=== PATIENT | female | born 1955 | race Caucasian/White ===

== ENCOUNTER 2021-08-25 14:55 | Inpatient (IN) | payer MEDICARE, MEDICAID ==
[2021-08-25] VITALS (10 sets, daily range): BP systolic 134–180; BP diastolic 67–124
[~2021-08-25] VITALS: Ht 162.5 cm; Wt 132.2 kg
[~2021-08-25 14:55] MED LIST: ASPI-84; [UNRECOGNIZED DRUG - OTHER]; pristiq
[2021-08-25] MEDS ORDERED: NITROGLYCERIN 0.4 MG SL TABS BTL 25'S SL ONE (15:10)
--- NOTE | 2021-08-25 15:16 | ED Respiratory ---
General Chief Complaint: Respiratory Problems Stated Complaint: SOB Source: patient Exam Limitations: no limitations History of Present Illness Date Seen by Provider: Aug 25, 2021 Time Seen by Provider: 15:13 Initial Comments To ER with shortness of breath for 4 days. She states that her right lower extremity swells quite a lot intermittently, sometimes it will swell twice as big as it is now. She denies any pain in it and is not sure why this happens. She denies fevers or chills but she has had a headache for the past 3 to 4 days. She started out at [facility] walk-in clinic with a negative Covid negative flu negative strep test today and was referred to the emergency room. She denies chest pain. She is found to be 88% on room air upon arrival to the emergency room. She is vaccinated against Covid. Timing/Duration: constant Severity: moderate Prior Episodes/Possible Cause: no prior episodes Associated Symptoms: cough, shortness of breath Allergies and Home Medications Allergies Coded Allergies: Latex, Natural Rubber (Verified Allergy, Unknown, 08/25/21) Patient Home Medication List Home Medication List Reviewed: Yes , (Reported) Entered as Reported by: LOLIS FERRIS on 11/06/09 0659 Aspirin (Anju) 81 Mg Tablet., (Reported) Entered as Reported by: LOLIS FERRIS on 11/06/09657 [visoprlol] , (Reported) Entered as Reported by: LOLIS FERRIS on 11/06/0958 Review of Systems Review of Systems Constitutional: see HPI; No chills, No fever EENTM: see HPI Respiratory: see HPI, cough, short of breath Cardiovascular: no symptoms reported Genitourinary: no symptoms reported Musculoskeletal: no symptoms reported Skin: no symptoms reported Psychiatric/Neurological: See HPI, Headache Hematologic/Lymphatic: No Symptoms Reported Past Gjyeirt-Nofyvw-Bnbtys Hx Past Medical History Reproductive Disorders: No Physical Exam Vital Signs - First Documented 08/25/21 15:05 Pulse 57 Resp 12 B/P (MAP) 173/124 (140) Pulse Ox 94 O2 Delivery Room Air Capillary Refill : Height: '" Weight: lbs. oz. kg; BMI Method: General Appearance: WD/WN, mild distress, cachetic, other (.Appears dyspneic after ambulating to room 10. Oxygen saturation 88% on room air. Right lower extremity is about twice the size of the left but there is no ecchymosis or erythema and it is nontender. Lungs are surprisingly clear.) Eyes: Bilateral Eye Normal Inspection, Bilateral Eye PERRL, Bilateral Eye EOMI Neck: non-tender, full range of motion Respiratory: normal breath sounds, no respiratory distress, no accessory muscle use Cardiovascular: regular rate, rhythm, no murmur Gastrointestinal: normal bowel sounds, non tender, soft Neurologic/Psychiatric: alert, normal mood/affect, oriented x 3 Skin: normal color, warm/dry Progress/Results/Core Measures Suspected Sepsis SIRS Temperature: Pulse: Respiratory Rate: Laboratory Tests 08/25/21 15:20: White Blood Count 9.2 Blood Pressure / Mean: Laboratory Tests 08/25/21 15:20: Creatinine 0.79, Platelet Count 222, Total Bilirubin 0.7 Results/Orders Lab Results Laboratory Tests Test 08/25/21 15:20 08/25/21 18:14 08/25/21 18:15 Range/Units White Blood Count 9.2 4.3-11.0 10^3/uL Red Blood Count 4.42 3.80-5.11 10^6/uL Hemoglobin 12.5 11.5-16.0 g/dL Hematocrit 39 35-52 % Mean Corpuscular Volume 88 80-99 fL Mean Corpuscular Hemoglobin 28 25-34 pg Mean Corpuscular Hemoglobin Concent 32 32-36 g/dL Red Cell Distribution Width 12.9 10.0-14.5 % Platelet Count 222 130-400 10^3/uL Mean Platelet Volume 9.4 9.0-12.2 fL Immature Granulocyte % (Auto) 0 % Neutrophils (%) (Auto) 70 42-75 % Lymphocytes (%) (Auto) 20 12-44 % Monocytes (%) (Auto) 6 0-12 % Eosinophils (%) (Auto) 4 0-10 % Basophils (%) (Auto) 0 0-10 % Neutrophils # (Auto) 6.4 1.8-7.8 10^3/uL Lymphocytes # (Auto) 1.9 1.0-4.0 10^3/uL Monocytes # (Auto) 0.5 0.0-1.0 10^3/uL Eosinophils # (Auto) 0.4 H 0.0-0.3 10^3/uL Basophils # (Auto) 0.0 0.0-0.1 10^3/uL Immature Granulocyte # (Auto) 0.0 0.0-0.1 10^3/uL D-Dimer 1.74 H 0.00-0.49 UG/ML Sodium Level 143 135-145 MMOL/L Potassium Level 3.9 3.6-5.0 MMOL/L Chloride Level 112 H 98-107 MMOL/L Carbon Dioxide Level 19 L 21-32 MMOL/L Anion Gap 12 5-14 MMOL/L Blood Urea Nitrogen 15 7-18 MG/DL Creatinine 0.79 0.60-1.30 MG/DL Estimat Glomerular Filtration Rate 82 BUN/Creatinine Ratio 19 Glucose Level 118 H 70-105 MG/DL Calcium Level 8.8 8.5-10.1 MG/DL Corrected Calcium 8.9 8.5-10.1 MG/DL Total Bilirubin 0.7 0.1-1.0 MG/DL Aspartate Amino Transf (AST/SGOT) 19 5-34 U/L Alanine Aminotransferase (ALT/SGPT) 19 0-55 U/L Alkaline Phosphatase 68 40-136 U/L Troponin I < 0.028 <0.028 NG/ML B-Type Natriuretic Peptide 368.3 H <100.0 PG/ML Total Protein 7.4 6.4-8.2 GM/DL Albumin 3.9 3.2-4.5 GM/DL My Orders Orders - RYAN DEL TORO TOOL TENDER Cbc With Automated Diff (08/25/21 15:10) Comprehensive Metabolic Panel (08/25/21 15:10) Ekg Tracing (08/25/21 15:10) Ua Culture If Indicated (08/25/21 15:10) Ed Iv/Invasive Line Start (08/25/21 15:10) Bnp [place] (08/25/21 15:10) Fibrin Degradation Products (08/25/21 15:10) Chest 1 View, Ap/Pa Only (08/25/21 15:10) Nitroglycerin 0.4 Mg Btl 25's (Nitrostat (08/25/21 15:10) Albuterol/Ipra Inhalation Soln (Duoneb I (08/25/21 15:30) Nitroglycerin 0.4 Mg Btl 25's (Nitrostat (08/25/21 15:30) Svn Small Volume Nebulizer (08/25/21 15:17) Ekg Tracing (08/25/21 15:17) Troponin I [place] (08/25/21 15:17) Aspirin Chewable Tablet (Baby Aspirin Ch (08/25/21 15:30) Aspirin Chewable Tablet (Baby Aspirin Ch (08/25/21 15:32) Ct Angio Chest W (08/25/21 15:52) Iohexol Injection (Omnipaque 350 Mg/Ml 1 (08/25/21 16:00) Received Contrast (Hold Metformin- Contr (08/25/21 16:00) Ns (Ivpb) (Sodium Chloride 0.9% Ivpb Bag (08/25/21 16:00) Hydralazine Injection (Apresoline Inject (08/25/21 16:30) Hydralazine Injection (Apresoline Inject (08/25/21 17:15) Procalcitonin (Pct) (08/25/21 18:04) Enoxaparin Injection (Lovenox Injectio (08/25/21 18:15) Enoxaparin Injection (Lovenox Injectio (08/25/21 18:15) Furosemide Injection (Lasix Injection) (08/25/21 18:15) Covid 19 Inhouse Test (08/25/21 18:06) Influenza A And B By Pcr (08/25/21 18:06) Arterial Blood Gas (08/25/21 18:17) Medications Given in ED Current Medications Medications Dose Ordered Sig/Leyla Route Start Time Stop Time Status Last Admin Dose Admin Albuterol/ Ipratropium 3 ml ONCE ONCE INH 08/25/21 15:30 08/25/21 15:31 DC 08/25/21 16:12 3 ML Aspirin 324 mg ONCE ONCE PO 08/25/21 15:30 08/25/21 15:31 DC 08/25/21 15:35 324 MG Hydralazine HCl 10 mg ONCE ONCE IV 08/25/21 16:30 08/25/21 16:31 DC 08/25/21 16:34 10 MG Hydralazine HCl 10 mg ONCE ONCE IV 08/25/21 17:15 08/25/21 17:16 DC 08/25/21 17:53 10 MG Iohexol 100 ml ONCE ONCE IV 08/25/21 16:00 08/25/21 16:01 DC 08/25/21 17:26 100 ML Nitroglycerin 0.4 mg STK-MED ONCE SL 08/25/21 15:10 08/25/21 15:14 DC 08/25/21 15:18 0.4 MG Sodium Chloride 100 ml ONCE ONCE IV 08/25/21 16:00 08/25/21 16:01 DC 08/25/21 17:26 80 ML Vital Signs/I&O 08/25/21 08/25/21 15:05 16:13 Pulse 57 Resp 12 B/P (MAP) 173/124 (140) Pulse Ox 94 O2 Delivery Room Air Room Air Capillary Refill : Departure Communication (Admissions) NAME: REY NICKERSON [facility] REC#: [id number] PT STATUS: REG ER : 1955 PHYSICIAN: RYAN DEL TORO APRN ADMIT DATE: 08/25/21/ER Draft Date of Exam:08/25/21 CHEST 1 VIEW, AP/PA ONLY EXAMINATION: Portable chest. INDICATION: Shortness of breath. FINDINGS: There is prominence demonstrated of the pulmonary interstitial markings and central vascular markings that suggests interstitial edema. There is mild enlargement of the cardiac silhouette. There may be small pleural effusions. There is no pneumothorax. IMPRESSION: Enlarged cardiac silhouette with central pulmonary vascular prominence suggesting pulmonary edema. Dictated on workstation # [id number] Dict: 08/25/21 1543 Trans: 08/25/[address] [facility] [id number] Interpreted by: ZUHAIR LEIGH MD Electronically signed by: [id number] shows sinus rhythm at 54 with a nonspecific intraventricular conduction delay QRS 117 ms QTC [address] segment change no ectopy 1822-spoke with Dr. Lemus. She will put in orders. Will give Lovenox 1 mg/kg here, cefepime and Lasix. I was able to get the ABG which was now sent down to lab. We will admit to Dr. Lemus she will put in queued orders, I spoke with Dr. Gallego who will consult. Impression Primary Impression: Hypoxia Additional Impression: CHF (congestive heart failure) Disposition: ADMITTED INPATIENT Condition: Stable Admissions Decision to Admit Reason: Admit from ER (General) Decision to Admit/Date: Aug 25, 2021 Time/Decision to Admit Time: 15:52 Departure-Patient Inst. Referrals: [facility] (PCP) Primary Care Physician RAMÓN DEL CASTILLO (Family) Primary Care Physician RYAN DEL TORO APRN Aug 25, 2021 15:16
[2021-08-25 15:26] LABS: BASOPHILS % (AUTO) 0 % (0-10); EOSINOPHILS # (AUTO) 0.4 10^3/uL (0.0-0.3); EOSINOPHILS % (AUTO) 4 % (0-10); HEMATOCRIT 39 % (35-52); HEMOGLOBIN 12.5 g/dL (11.5-16.0); LYMPHOCYTES # (AUTO) 1.9 10^3/uL (1.0-4.0); LYMPHOCYTES % (AUTO) 20 % (12-44); MEAN CORPUSCULAR HEMOGLOBIN 28 pg (25-34); MEAN CORPUSCULAR HGB CONC 32 g/dL (32-36); MEAN CORPUSCULAR VOLUME 88 fL (80-99); MEAN PLATELET VOLUME 9.4 fL (9.0-12.2); MONOCYTES # (AUTO) 0.5 10^3/uL (0.0-1.0); MONOCYTES % (AUTO) 6 % (0-12); NEUTROPHILS # (AUTO) 6.4 10^3/uL (1.8-7.8); NEUTROPHILS % (AUTO) 70 % (42-75); PLATELET COUNT 222 10^3/uL (130-400); WHITE BLOOD COUNT 9.2 10^3/uL (4.3-11.0)
[2021-08-25] MEDS ORDERED: ASPIRIN 81 MG CHEW (CHILDREN'S ASA) PO ONE (15:30)
[2021-08-25] MEDS ORDERED: RT-ALBUTEROL/IPRATROPIUM 3 ML (DUONEB) VIAL INH ONE (15:30)
[2021-08-25] MEDS ORDERED: NITROGLYCERIN 0.4 MG SL TABS BTL 25'S SL PRN (15:30)
[2021-08-25] MEDS ORDERED: ASPIRIN 81 MG CHEW (CHILDREN'S ASA) ONE (15:32)
[2021-08-25 15:46] LABS: ALANINE AMINOTRANSFERASE 19 U/L (0-55); ALBUMIN 3.9 GM/DL (3.2-4.5); ALKALINE PHOSPHATASE 68 U/L (40-136); BILIRUBIN,TOTAL 0.7 MG/DL (0.1-1.0); BUN/CREATININE RATIO 19; CALCIUM 8.8 MG/DL (8.5-10.1); CARBON DIOXIDE 19 MMOL/L (21-32); CHLORIDE 112 MMOL/L (98-107); CREATININE SERUM 0.79 MG/DL (0.60-1.30); GFR ESTIMATED 82; GLUCOSE 118 MG/DL (70-105); POTASSIUM 3.9 MMOL/L (3.6-5.0); SODIUM 143 MMOL/L (135-145); TOTAL PROTEIN 7.4 GM/DL (6.4-8.2)
--- NOTE | 2021-08-25 15:50 | Diagnostic Imaging Report ---
EXAMINATION: Portable chest. INDICATION: Shortness of breath. FINDINGS: There is prominence demonstrated of the pulmonary interstitial markings and central vascular markings that suggests interstitial edema. There is mild enlargement of the cardiac silhouette. There may be small pleural effusions. There is no pneumothorax. IMPRESSION: Enlarged cardiac silhouette with central pulmonary vascular prominence suggesting pulmonary edema. Dictated by: Dictated on workstation # [id number]
[2021-08-25] MEDS ORDERED: HOLD METFORMIN - RECEIVED CONTRAST 20 ML VIAL IV SCH (16:00)
[2021-08-25] MEDS ORDERED: IOHEXOL 350 MG/ML 100 ML (OMNIPAQUE 350) VIAL IV ONE (16:00)
[2021-08-25] MEDS ORDERED: NS 100 ML (IVPB) BAG IV ONE (16:00)
[2021-08-25] MEDS ORDERED: hydrALAZINE (APESOLINE) 20 MG/ML VIAL IV ONE ×2 (16:30→17:15)
--- NOTE | 2021-08-25 17:59 | Diagnostic Imaging Report ---
PROCEDURE: CT angiography of the chest with contrast. TECHNIQUE: Multiple contiguous axial images were obtained through the chest after uneventful bolus administration of intravenous contrast. 3D reconstructed CTA MIP acquisitions were also performed. Auto Exposure Controls were utilized during the CT exam to meet ALARA standards for radiation dose reduction. INDICATION: 66-year-old female, shortness of air x 4 days. Elevated D-dimer, leg swelling. CORRELATION: Chest radiograph 08/25/2021. FINDINGS: Heart size is mildly enlarged. No pericardial effusion. No disproportionate right heart strain. The thoracic aorta is of normal contour. No aneurysm or dissection. Mildly prominent but currently non pathologically large mediastinal and hilar lymph nodes are present. There is no definitive pulmonary artery filling defect to suggest pulmonary embolism. Small to moderate pleural effusions layer dependently. Scattered particularly groundglass opacities are noted, particularly the lower lobe distributions. No jelly lobar consolidation. Cholecystectomy. Likely hepatic steatosis. The visualized osseous structures demonstrate no acute findings. IMPRESSION: 1. No CTA evidence for pulmonary embolism. 2. Cardiac enlargement with presence of pleural effusion, groundglass pulmonary infiltrate-like opacities favors probable edema. Vasculature however does not appear to be overly distended. 3. Groundglass opacities could also be reflective of multifocal pneumonitis. This would include an atypical viral-type pneumonitis including potential for Covid pneumonia. Dictated by: Dictated on workstation # [id number]
[2021-08-25] MEDS ORDERED: ENOXAPARIN 80 MG/0.8 ML (LOVENOX) SYR SC ONE (18:15)
[2021-08-25] MEDS ORDERED: FUROSEMIDE 40 MG/4 ML INJ (LASIX) IVP ONE (18:15)
[2021-08-25] MEDS ORDERED: ENOXAPARIN 60 MG/0.6 ML (LOVENOX) SYR SC ONE (18:15)
[2021-08-25 18:24] LABS: ABG BASE EXCESS -1.9 MMOL/L (-2.5-2.5); ABG OXYGEN SATURATION 96 % (94-100); ABG PCO2 37 MMHG (35-45); ABG PO2 83 MMHG (79-93); ABG TCO2 23.4 MMOL/L (21.0-31.0)
[2021-08-25 18:28] LABS: ALLENS TEST YES-POS; INSPIRED O2 ROOM AIR; VENTILATOR NO
[2021-08-25] MEDS ORDERED: cloNIDine 0.1 MG (CATAPRES) TAB PO ONE (19:30)
[2021-08-25 19:33] LABS: BILIRUBIN,URINE NEGATIVE (NEGATIVE); CLARITY,URINE CLEAR; COLOR,URINE YELLOW; GLUCOSE, URINE (UA) NEGATIVE (NEGATIVE); KETONES,URINE NEGATIVE (NEGATIVE); LEUKOCYTE ESTERASE ,URINE 1+ (NEGATIVE); NITRITE,URINE NEGATIVE (NEGATIVE); PH,URINE 5.5 (5-9); PROTEIN,URINE NEGATIVE (NEGATIVE)
[2021-08-25 19:41] LABS: BACTERIA,URINE FEW /HPF; SQUAMOUS EPITHELIAL CELL,UR 0-2 /HPF; WBC,URINE 0-2 /HPF
[2021-08-25] MEDS ORDERED: CALCIUM CARBONATE 500 MG (TUMS) TAB.CHEW PO PRN (20:15)
[2021-08-25] MEDS ORDERED: polyethylene glycoL POWDER 17 GM (MIRALAX) PACK PO PRN (20:15)
[2021-08-25] MEDS ORDERED: LACTULOSE SYRUP 10GM/15ML (ENULOSE) 30ML UDC PO PRN (20:15)
[2021-08-25] MEDS ORDERED: MELATONIN 3 MG TABLET PO PRN (20:15)
[2021-08-25] MEDS ORDERED: diphenhydrAMINE 50 MG/ML INJ (BENADRYL) IVP PRN (20:15)
[2021-08-25] MEDS ORDERED: MILK OF MAGNESIA 400 MG/5 ML 30 ML UDC PO PRN (20:15)
[2021-08-25] MEDS ORDERED: ACETAMINOPHEN 325 MG TABLET PO PRN (20:15)
[2021-08-25] MEDS ORDERED: ALPRAZolam 0.25 MG (XANAX) TAB PO PRN (20:15)
[2021-08-25] MEDS ORDERED: guaiFENesin/CODEINE (ROBITUSSIN AC) 10ML UDC PO PRN (20:15)
[2021-08-25] MEDS ORDERED: morphine INJ 4 MG/ML 1 ML (VIAL/SYRINGE) IV PRN (20:15)
[2021-08-25] MEDS ORDERED: ANTACID SUSP 30 ML UDC (MYLANTA) PO PRN (20:15)
[2021-08-25] MEDS ORDERED: BISACODYL 10 MG SUPP (DULCOLAX) PR PRN (20:15)
[2021-08-25] MEDS ORDERED: diphenhydrAMINE 25 MG TAB (BENADRYL) PO PRN (20:15)
[2021-08-25] MEDS ORDERED: ONDANSETRON 4 MG/2 ML (SDV) Z0FRAN IV PRN (20:15)
[2021-08-25] MEDS ORDERED: ONDANSETRON 4 MG (ZOFRAN) ORAL DISSOLVE TAB PO PRN (20:15)
[2021-08-25] MEDS: DOCUSATE SODIUM 100 MG (COLACE) CAP PO SCH (20:21)
[2021-08-25] MEDS: SENNOSIDES 8.6 MG (SENOKOT) TAB PO SCH (20:21)
[2021-08-25] MEDS ORDERED: CEFEPIME INJECTION 2,000 MG in NS (IVPB) 50 ML IV SCH (21:00)
[2021-08-25] MEDS ORDERED: ENOXAPARIN 80 MG/0.8 ML (LOVENOX) SYR SC SCH (21:00)
[2021-08-25] MEDS ORDERED: RT-ALBUTEROL SULF 2.5 MG/3 ML PRE-MIX VIAL INH PRN (21:15)
[2021-08-25] MEDS: CEFEPIME 1,000 MG/NS 50 ML IVPB IV SCH ×2 (22:30)
[2021-08-26] VITALS (10 sets, daily range): BP systolic 148–215; BP diastolic 77–101
[2021-08-26] MEDS: CEFEPIME 1,000 MG/NS 50 ML IVPB IV SCH ×6 (04:09→15:50)
[2021-08-26] MEDS ORDERED: HYDR25TA4 PO (04:47)
[2021-08-26] MEDS ORDERED: LOSA1TAB26 PO (04:47)
[2021-08-26] MEDS ORDERED: METO50TA7 PO (04:47)
[2021-08-26 05:11] LABS: BASOPHILS % (AUTO) 0 % (0-10); EOSINOPHILS # (AUTO) 0.1 10^3/uL (0.0-0.3); EOSINOPHILS % (AUTO) 1 % (0-10); HEMATOCRIT 37 % (35-52); HEMOGLOBIN 11.8 g/dL (11.5-16.0); LYMPHOCYTES # (AUTO) 1.7 10^3/uL (1.0-4.0); LYMPHOCYTES % (AUTO) 19 % (12-44); MEAN CORPUSCULAR HEMOGLOBIN 28 pg (25-34); MEAN CORPUSCULAR HGB CONC 32 g/dL (32-36); MEAN CORPUSCULAR VOLUME 87 fL (80-99); MONOCYTES # (AUTO) 0.5 10^3/uL (0.0-1.0); MONOCYTES % (AUTO) 6 % (0-12); NEUTROPHILS # (AUTO) 6.4 10^3/uL (1.8-7.8); NEUTROPHILS % (AUTO) 73 % (42-75); PLATELET COUNT 227 10^3/uL (130-400); WHITE BLOOD COUNT 8.8 10^3/uL (4.3-11.0)
[2021-08-26 05:41] LABS: ALBUMIN 3.7 GM/DL (3.2-4.5); BILIRUBIN,TOTAL 0.6 MG/DL (0.1-1.0); CALCIUM 8.7 MG/DL (8.5-10.1); CREATININE SERUM 0.74 MG/DL (0.60-1.30); POTASSIUM 3.6 MMOL/L (3.6-5.0); TOTAL PROTEIN 7.4 GM/DL (6.4-8.2)
[2021-08-26] MEDS ORDERED: meTOproloL SUCCINATE 50 MG (TOPROL XL) TAB PO SCH (05:45)
[2021-08-26] MEDS: LOSARTAN 100 MG (COZAAR) TABLET PO SCH (06:25)
[2021-08-26] MEDS: cloNIDine 0.1 MG (CATAPRES) TAB PO SCH ×2 (08:43→20:29)
[2021-08-26] MEDS: ENOXAPARIN 100 MG/1 ML (LOVENOX) SYR SC SCH ×3 (08:43→20:29)
[2021-08-26] MEDS: DOCUSATE SODIUM 100 MG (COLACE) CAP PO SCH ×2 (08:44→21:08)
[2021-08-26] MEDS: SENNOSIDES 8.6 MG (SENOKOT) TAB PO SCH ×2 (08:44→21:08)
[2021-08-26] MEDS ORDERED: FUROSEMIDE 40 MG/4 ML INJ (LASIX) IVP SCH (09:00)
--- NOTE | 2021-08-26 09:25 | Diagnostic Imaging Report ---
PROCEDURE: US Venous Lower Ext Neptali. TECHNIQUE: Multiple real-time grayscale images were obtained over the lower extremities in various projections, bilaterally. Additional duplex Doppler and color Doppler images were also obtained. INDICATION: Atypical pneumonia. FINDINGS: There is no evidence of right or left lower extremity DVT. Both lower extremity deep venous systems demonstrate normal compressibility with normal response to augmentation and Valsalva. No fluid collection or mass is detected. IMPRESSION: No evidence of right or left lower extremity DVT. Dictated by: Dictated on workstation # [id number]
--- NOTE | 2021-08-26 10:06 | Consultation-Cardiology ---
HPI-Cardiology Cardiology Consultation Date of Consultation 08/26/21 Date of Admission Time Seen by Provider: 10:00 Indication: Shortness of breath HPI 66-year-old lady with history of peripheral edema, started to have increasing shortness of breath and tachycardia, came into the emergency room for evaluation. She reported that her right leg was swelling. She uses diuretic as needed for edema, started to have progressive dyspnea. Denied any fever or chills. No cough or phlegm. Reported that she was tested negative for Covid and for influenza. On my evaluation she was sitting up in a chair, feeling better, no active dyspnea. No significant edema. No chest pain. Home Medications & Allergies Allergies: Coded Allergies: Latex, Natural Rubber (Verified Allergy, Unknown, 08/25/21) Home Medication List Reviewed: Yes YZE-Wgxzik-Wlfroy Hx Patient Social History Smoking Status: Former Smoker Have you traveled recently?: No Alcohol Use?: No Past Medical History Discussed below Family Medical History Family Medical Hx Noncontributory Review of Systems-General Review of Systems Constitutional: see HPI; No chills, No fever EENTM: see HPI Respiratory: see HPI, cough, short of breath Cardiovascular: no symptoms reported Gastrointestinal: no symptoms reported, see HPI Genitourinary: no symptoms reported Musculoskeletal: no symptoms reported Skin: no symptoms reported Psychiatric/Neurological: See HPI, Headache Reviewed Test Results Reviewed Test Results Lab Laboratory Tests Test 08/25/21 15:20 08/25/21 18:14 08/25/21 18:15 08/25/21 19:28 Range/Units White Blood Count 9.2 4.3-11.0 10^3/uL Red Blood Count 4.42 3.80-5.11 10^6/uL Hemoglobin 12.5 11.5-16.0 g/dL Hematocrit 39 35-52 % Mean Corpuscular Volume 88 80-99 fL Mean Corpuscular Hemoglobin 28 25-34 pg Mean Corpuscular Hemoglobin Concent 32 32-36 g/dL Red Cell Distribution Width 12.9 10.0-14.5 % Platelet Count 222 130-400 10^3/uL Mean Platelet Volume 9.4 9.0-12.2 fL Immature Granulocyte % (Auto) 0 % Neutrophils (%) (Auto) 70 42-75 % Lymphocytes (%) (Auto) 20 12-44 % Monocytes (%) (Auto) 6 0-12 % Eosinophils (%) (Auto) 4 0-10 % Basophils (%) (Auto) 0 0-10 % Neutrophils # (Auto) 6.4 1.8-7.8 10^3/uL Lymphocytes # (Auto) 1.9 1.0-4.0 10^3/uL Monocytes # (Auto) 0.5 0.0-1.0 10^3/uL Eosinophils # (Auto) 0.4 H 0.0-0.3 10^3/uL Basophils # (Auto) 0.0 0.0-0.1 10^3/uL Immature Granulocyte # (Auto) 0.0 0.0-0.1 10^3/uL D-Dimer 1.74 H 0.00-0.49 UG/ML Sodium Level 143 135-145 MMOL/L Potassium Level 3.9 3.6-5.0 MMOL/L Chloride Level 112 H 98-107 MMOL/L Carbon Dioxide Level 19 L 21-32 MMOL/L Anion Gap 12 5-14 MMOL/L Blood Urea Nitrogen 15 7-18 MG/DL Creatinine 0.79 0.60-1.30 MG/DL Estimat Glomerular Filtration Rate 82 BUN/Creatinine Ratio 19 Glucose Level 118 H 70-105 MG/DL Calcium Level 8.8 8.5-10.1 MG/DL Corrected Calcium 8.9 8.5-10.1 MG/DL Total Bilirubin 0.7 0.1-1.0 MG/DL Aspartate Amino Transf (AST/SGOT) 19 5-34 U/L Alanine Aminotransferase (ALT/SGPT) 19 0-55 U/L Alkaline Phosphatase 68 40-136 U/L Troponin I < 0.028 <0.028 NG/ML B-Type Natriuretic Peptide 368.3 H <100.0 PG/ML Total Protein 7.4 6.4-8.2 GM/DL Albumin 3.9 3.2-4.5 GM/DL Procalcitonin 0.14 H <0.10 NG/ML Blood Gas Puncture Site RT RAD Blood Gas Patient Temperature 37.0 Arterial Blood pH 7.40 7.37-7.43 Arterial Blood Partial Pressure CO2 37 35-45 MMHG Arterial Blood Partial Pressure O2 83 79-93 MMHG Arterial Blood HCO3 22 L 23-27 MMOL/L Arterial Blood Total CO2 23.4 21.0-31.0 MMOL/L Arterial Blood Oxygen Saturation 96 94-100 % Arterial Blood Base Excess -1.9 -2.5-2.5 MMOL/L Levi Test YES-POS Blood Gas Ventilator Setting NO Blood Gas Inspired Oxygen ROOM AIR Influenza Type A Antigen NEGATIVE NEGATIVE Influenza Type B Antigen NEGATIVE NEGATIVE SARS-CoV-2 RNA (RT-PCR) Not Detected Negative Urine Color YELLOW Urine Clarity CLEAR Urine pH 5.5 5-9 Urine Specific [place] 1.010 L 1.016-1.022 Urine Protein NEGATIVE NEGATIVE Urine Glucose (UA) NEGATIVE NEGATIVE Urine Ketones NEGATIVE NEGATIVE Urine Nitrite NEGATIVE NEGATIVE Urine Bilirubin NEGATIVE NEGATIVE Urine Urobilinogen 0.2 < = 1.0 MG/DL Urine Leukocyte Esterase 1+ H NEGATIVE Urine RBC (Auto) NEGATIVE NEGATIVE Urine RBC NONE /HPF Urine WBC 0-2 /HPF Urine Squamous Epithelial Cells 0-2 /HPF Urine Renal Epithelial Cells NONE /HPF Urine Crystals NONE /LPF Urine Bacteria FEW H /HPF Urine Casts NONE /LPF Urine Mucus NEGATIVE /LPF Urine Culture Indicated NO Test 08/26/21 04:52 Range/Units White Blood Count 8.8 4.3-11.0 10^3/uL Red Blood Count 4.23 3.80-5.11 10^6/uL Hemoglobin 11.8 11.5-16.0 g/dL Hematocrit 37 35-52 % Mean Corpuscular Volume 87 80-99 fL Mean Corpuscular Hemoglobin 28 25-34 pg Mean Corpuscular Hemoglobin Concent 32 32-36 g/dL Red Cell Distribution Width 13.1 10.0-14.5 % Platelet Count 227 130-400 10^3/uL Mean Platelet Volume 10.0 9.0-12.2 fL Immature Granulocyte % (Auto) 0 % Neutrophils (%) (Auto) 73 42-75 % Lymphocytes (%) (Auto) 19 12-44 % Monocytes (%) (Auto) 6 0-12 % Eosinophils (%) (Auto) 1 0-10 % Basophils (%) (Auto) 0 0-10 % Neutrophils # (Auto) 6.4 1.8-7.8 10^3/uL Lymphocytes # (Auto) 1.7 1.0-4.0 10^3/uL Monocytes # (Auto) 0.5 0.0-1.0 10^3/uL Eosinophils # (Auto) 0.1 0.0-0.3 10^3/uL Basophils # (Auto) 0.0 0.0-0.1 10^3/uL Immature Granulocyte # (Auto) 0.0 0.0-0.1 10^3/uL Sodium Level 143 135-145 MMOL/L Potassium Level 3.6 3.6-5.0 MMOL/L Chloride Level 109 H 98-107 MMOL/L Carbon Dioxide Level 20 L 21-32 MMOL/L Anion Gap 14 5-14 MMOL/L Blood Urea Nitrogen 13 7-18 MG/DL Creatinine 0.74 0.60-1.30 MG/DL Estimat Glomerular Filtration Rate 89 BUN/Creatinine Ratio 18 Glucose Level 103 70-105 MG/DL Calcium Level 8.7 8.5-10.1 MG/DL Corrected Calcium 8.9 8.5-10.1 MG/DL Total Bilirubin 0.6 0.1-1.0 MG/DL Aspartate Amino Transf (AST/SGOT) 16 5-34 U/L Alanine Aminotransferase (ALT/SGPT) 16 0-55 U/L Alkaline Phosphatase 63 40-136 U/L Total Protein 7.4 6.4-8.2 GM/DL Albumin 3.7 3.2-4.5 GM/DL Physical Exam Physical Exam Vital Signs Vital Signs - First Documented 08/25/21 08/25/21 08/25/21 15:05 19:45 20:56 Temp 36.8 Pulse 57 Resp 12 B/P (MAP) 173/124 (140) Pulse Ox 94 O2 Delivery Room Air FiO2 21 Capillary Refill : Less Than 3 Seconds Height, Weight, BMI Height: '" Weight: lbs. oz. kg; 50.10 BMI Method: General Appearance: No Apparent Distress, WD/WN Eyes: Bilateral Eye Normal Inspection, Bilateral Eye PERRL, Bilateral Eye EOMI HEENT: PERRL/EOMI, TMs Normal, Normal ENT Inspection, Pharynx Normal, Moist Mucous Membranes Neck: Full Range of Motion, Normal Inspection, Non Tender, Supple, Carotid Bruit Respiratory: Chest Non Tender, Normal Breath Sounds, No Accessory Muscle Use, No Respiratory Distress Cardiovascular: Regular Rate, Rhythm, No Edema, No Gallop, No JVD, No Murmur, Normal Peripheral Pulses Gastrointestinal: Normal Bowel Sounds, No Organomegaly, No Pulsatile Mass, Non Tender, Soft Back: Normal Inspection, No CVA Tenderness, No Vertebral Tenderness Extremity: Normal Capillary Refill, Normal Inspection, Normal Range of Motion, Non Tender, No Calf Tenderness, No Pedal Edema Neurologic/Psychiatric: Alert, Oriented x3, No Motor/Sensory Deficits, Normal Mood/Affect Skin: Normal Color, Warm/Dry Lymphatic: No Adenopathy A/P-Cardiology Admission Diagnosis Shortness of breath Hypertension Obesity Peripheral edema Assessment/Plan Shortness of breath, mild elevation in BNP, responded to diuretics, feeling better, awaiting for repeat COVID-19 testing results, planning to evaluate 2D echo Hypertension, poorly controlled, given a dose of clonidine earlier. Continue to monitor blood pressure, restart home medication Questionable history of coronary artery disease, patient reporting that she had a heart attack at age 37, did not require any stenting, was not on any treatment and no further episodes were reported. No cardiac work-up was done Obesity, BMI 50, discussed weight loss History of substance abuse, has been abstinent for over 20 years Pedal edema, reporting recurrent right lower extremity edema, better at this time Anxiety, managed by primary care physician NAVJOT CABRERA MD Aug 26, 2021 10:06
[2021-08-26] MEDS ORDERED: GLUC1TAB20 PO (11:21)
[2021-08-26] MEDS ORDERED: MTP100TCR PO (11:21)
[2021-08-26] MEDS ORDERED: LOSA100T57 PO (11:21)
--- NOTE | 2021-08-26 16:50 | History & Physical ---
HPI History of Present Illness: 66 yo female came to ER due to shortness of breath for 4 days that was worsening, she called the ambulance. Has had mild cough, no other complaints. Tested negative for COVID at clinic. Source: patient Exam Limitations: no limitations Date seen by provider: Aug 26, 2021 Time Seen by Provider: 10:30 Attending Physician Amanda Gong MD PCP [place] [place] Consult Date of Admission Aug 25, 2021 at 18:38 Home Medications Home Medications Reviewed patient Home Medication Reconciliation performed by pharmacy medication reconciliations operating theatre technician and/or nursing. Patients Allergies have been reviewed. 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: [employer] X1 Past Medical History PMHx: Distant history of substance abuse HTN HLD Depression SurgHx: Hysterectomy cholecystectomy Family Medical History Significant Family History: No Pertinent Family Hx Review of Systems (CHC) Constitutional: No fever Respiratory: cough, short of breath Cardiovascular: No chest pain, No edema (has right leg larger than left chronically) Gastrointestinal: No abdominal pain, No diarrhea, No nausea, No vomiting Genitourinary: No dysuria, No hematuria Musculoskeletal: No joint pain, No muscle pain Reviewed Test Results Reviewed Test Results Lab Laboratory Tests Test 08/25/21 15:20 08/25/21 18:14 08/25/21 18:15 08/25/21 19:28 Range/Units White Blood Count 9.2 4.3-11.0 10^3/uL Red Blood Count 4.42 3.80-5.11 10^6/uL Hemoglobin 12.5 11.5-16.0 g/dL Hematocrit 39 35-52 % Mean Corpuscular Volume 88 80-99 fL Mean Corpuscular Hemoglobin 28 25-34 pg Mean Corpuscular Hemoglobin Concent 32 32-36 g/dL Red Cell Distribution Width 12.9 10.0-14.5 % Platelet Count 222 130-400 10^3/uL Mean Platelet Volume 9.4 9.0-12.2 fL Immature Granulocyte % (Auto) 0 % Neutrophils (%) (Auto) 70 42-75 % Lymphocytes (%) (Auto) 20 12-44 % Monocytes (%) (Auto) 6 0-12 % Eosinophils (%) (Auto) 4 0-10 % Basophils (%) (Auto) 0 0-10 % Neutrophils # (Auto) 6.4 1.8-7.8 10^3/uL Lymphocytes # (Auto) 1.9 1.0-4.0 10^3/uL Monocytes # (Auto) 0.5 0.0-1.0 10^3/uL Eosinophils # (Auto) 0.4 H 0.0-0.3 10^3/uL Basophils # (Auto) 0.0 0.0-0.1 10^3/uL Immature Granulocyte # (Auto) 0.0 0.0-0.1 10^3/uL D-Dimer 1.74 H 0.00-0.49 UG/ML Sodium Level 143 135-145 MMOL/L Potassium Level 3.9 3.6-5.0 MMOL/L Chloride Level 112 H 98-107 MMOL/L Carbon Dioxide Level 19 L 21-32 MMOL/L Anion Gap 12 5-14 MMOL/L Blood Urea Nitrogen 15 7-18 MG/DL Creatinine 0.79 0.60-1.30 MG/DL Estimat Glomerular Filtration Rate 82 BUN/Creatinine Ratio 19 Glucose Level 118 H 70-105 MG/DL Calcium Level 8.8 8.5-10.1 MG/DL Corrected Calcium 8.9 8.5-10.1 MG/DL Total Bilirubin 0.7 0.1-1.0 MG/DL Aspartate Amino Transf (AST/SGOT) 19 5-34 U/L Alanine Aminotransferase (ALT/SGPT) 19 0-55 U/L Alkaline Phosphatase 68 40-136 U/L Troponin I < 0.028 <0.028 NG/ML B-Type Natriuretic Peptide 368.3 H <100.0 PG/ML Total Protein 7.4 6.4-8.2 GM/DL Albumin 3.9 3.2-4.5 GM/DL Procalcitonin 0.14 H <0.10 NG/ML Blood Gas Puncture Site RT RAD Blood Gas Patient Temperature 37.0 Arterial Blood pH 7.40 7.37-7.43 Arterial Blood Partial Pressure CO2 37 35-45 MMHG Arterial Blood Partial Pressure O2 83 79-93 MMHG Arterial Blood HCO3 22 L 23-27 MMOL/L Arterial Blood Total CO2 23.4 21.0-31.0 MMOL/L Arterial Blood Oxygen Saturation 96 94-100 % Arterial Blood Base Excess -1.9 -2.5-2.5 MMOL/L Levi Test YES-POS Blood Gas Ventilator Setting NO Blood Gas Inspired Oxygen ROOM AIR Coronavirus (COVID-19)(PCR) Negative Negative Influenza Type A Antigen NEGATIVE NEGATIVE Influenza Type B Antigen NEGATIVE NEGATIVE SARS-CoV-2 RNA (RT-PCR) Not Detected Negative Urine Color YELLOW Urine Clarity CLEAR Urine pH 5.5 5-9 Urine Specific [place] 1.010 L 1.016-1.022 Urine Protein NEGATIVE NEGATIVE Urine Glucose (UA) NEGATIVE NEGATIVE Urine Ketones NEGATIVE NEGATIVE Urine Nitrite NEGATIVE NEGATIVE Urine Bilirubin NEGATIVE NEGATIVE Urine Urobilinogen 0.2 < = 1.0 MG/DL Urine Leukocyte Esterase 1+ H NEGATIVE Urine RBC (Auto) NEGATIVE NEGATIVE Urine RBC NONE /HPF Urine WBC 0-2 /HPF Urine Squamous Epithelial Cells 0-2 /HPF Urine Renal Epithelial Cells NONE /HPF Urine Crystals NONE /LPF Urine Bacteria FEW H /HPF Urine Casts NONE /LPF Urine Mucus NEGATIVE /LPF Urine Culture Indicated NO Test 08/26/21 04:52 Range/Units White Blood Count 8.8 4.3-11.0 10^3/uL Red Blood Count 4.23 3.80-5.11 10^6/uL Hemoglobin 11.8 11.5-16.0 g/dL Hematocrit 37 35-52 % Mean Corpuscular Volume 87 80-99 fL Mean Corpuscular Hemoglobin 28 25-34 pg Mean Corpuscular Hemoglobin Concent 32 32-36 g/dL Red Cell Distribution Width 13.1 10.0-14.5 % Platelet Count 227 130-400 10^3/uL Mean Platelet Volume 10.0 9.0-12.2 fL Immature Granulocyte % (Auto) 0 % Neutrophils (%) (Auto) 73 42-75 % Lymphocytes (%) (Auto) 19 12-44 % Monocytes (%) (Auto) 6 0-12 % Eosinophils (%) (Auto) 1 0-10 % Basophils (%) (Auto) 0 0-10 % Neutrophils # (Auto) 6.4 1.8-7.8 10^3/uL Lymphocytes # (Auto) 1.7 1.0-4.0 10^3/uL Monocytes # (Auto) 0.5 0.0-1.0 10^3/uL Eosinophils # (Auto) 0.1 0.0-0.3 10^3/uL Basophils # (Auto) 0.0 0.0-0.1 10^3/uL Immature Granulocyte # (Auto) 0.0 0.0-0.1 10^3/uL Sodium Level 143 135-145 MMOL/L Potassium Level 3.6 3.6-5.0 MMOL/L Chloride Level 109 H 98-107 MMOL/L Carbon Dioxide Level 20 L 21-32 MMOL/L Anion Gap 14 5-14 MMOL/L Blood Urea Nitrogen 13 7-18 MG/DL Creatinine 0.74 0.60-1.30 MG/DL Estimat Glomerular Filtration Rate 89 BUN/Creatinine Ratio 18 Glucose Level 103 70-105 MG/DL Calcium Level 8.7 8.5-10.1 MG/DL Corrected Calcium 8.9 8.5-10.1 MG/DL Total Bilirubin 0.6 0.1-1.0 MG/DL Aspartate Amino Transf (AST/SGOT) 16 5-34 U/L Alanine Aminotransferase (ALT/SGPT) 16 0-55 U/L Alkaline Phosphatase 63 40-136 U/L Total Protein 7.4 6.4-8.2 GM/DL Albumin 3.7 3.2-4.5 GM/DL Radiology 1. No CTA evidence for pulmonary embolism. 2. Cardiac enlargement with presence of pleural effusion, groundglass pulmonary infiltrate-like opacities favors probable edema. Vasculature however does not appear to be overly distended. 3. Groundglass opacities could also be reflective of multifocal pneumonitis. This would include an atypical viral-type pneumonitis including potential for Covid pneumonia. Physical Exam-(CHC) Physical Exam Vital Signs VS - Last 72 Hours, by Label 08/25/21 08/25/21 08/25/21 08/25/21 15:05 16:13 19:45 20:10 Temp 36.8 Pulse 57 75 Resp 12 16 B/P (MAP) 173/124 (140) 179/94 Pulse Ox 94 96 O2 Delivery Room Air Room Air Room Air Room Air 08/25/21 08/25/21 08/25/21 08/25/21 20:30 20:31 20:45 20:56 Temp 36.0 36.0 Pulse 61 60 82 57 Resp 22 21 B/P (MAP) 164/93 (116) 142/115 (127) Pulse Ox 96 96 94 O2 Delivery Room Air Room Air FiO2 21 08/25/21 08/25/21 08/25/21 08/25/21 21:00 21:00 21:15 21:30 Pulse 60 53 47 Resp 19 12 10 B/P (MAP) 134/67 (96) 153/75 (120) 158/85 (108) Pulse Ox 96 95 97 97 O2 Delivery Room Air Room Air Room Air Room Air 08/25/21 08/25/21 08/25/21 08/25/21 21:45 22:00 22:15 23:00 Pulse 48 52 52 54 Resp 22 12 B/P (MAP) 161/85 (119) 161/79 (109) 165/78 (119) 180/88 (117) Pulse Ox 97 98 98 98 O2 Delivery Room Air Room Air Room Air Room Air 08/26/21 08/26/21 08/26/21 08/26/21 00:00 00:00 01:00 04:10 Temp 36.0 Pulse 56 53 57 Resp 15 18 B/P (MAP) 161/82 (106) 191/81 (117) Pulse Ox 96 97 O2 Delivery Room Air Room Air 08/26/21 08/26/21 08/26/21 08/26/21 04:11 07:45 08:00 08:47 Temp 36.1 36.6 Pulse 49 53 Resp 29 B/P (MAP) 200/99 (132) Pulse Ox 96 O2 Delivery Room Air 08/26/21 08/26/21 08/26/21 08/26/21 08:53 08:55 08:56 09:30 Pulse 53 55 56 Resp 18 17 16 B/P (MAP) 215/94 (134) 207/98 (134) 206/101 (136) Pulse Ox 96 97 96 96 O2 Delivery Room Air Room Air Room Air Room Air 08/26/21 08/26/21 08/26/21 12:00 12:15 16:47 Temp 36.2 37.3 Pulse 67 87 58 Resp 18 18 B/P (MAP) 167/92 (117) 167/78 (107) Pulse Ox 94 95 O2 Delivery Room Air Room Air Capillary Refill : Less Than 3 Seconds General Appearance: WD/WN, no apparent distress Respiratory: lungs clear, normal breath sounds Cardiovascular: regular rate, rhythm, no murmur Gastrointestinal: normal bowel sounds, non tender, soft Extremities: pedal edema (non-pitting, right greater than left) Neurologic/Psychiatric: alert, normal mood/affect, oriented x 3 Skin: normal color, warm/dry Assessment/Plan Assessment/Plan Admission Status: Inpatient Order (span 2 midnights) Reason for Inpatient Admission: Suspected new onset CHF (1) Shortness of breath Status: Acute Assessment & Plan: Not requiring supplemental oxygen, suspect due to pulmonary edema, no clear infiltrate, and no leukocytosis, will d/c cefepime; COVID negative, d/c dexamethasone. (2) Elevated brain natriuretic peptide (BNP) level Status: Acute Assessment & Plan: Echo pending, cardiology consulted, appreciate recommendations. lasix 40 mg IV daily started. (3) Elevated d-dimer Status: Acute Assessment & Plan: CTA chest neg for PE, ultrasound bilateral lower extremities neg for DVT, will decrease enoxaparin to prophylaxis dosing. (4) Hypertension Status: Chronic Assessment & Plan: Severe, resume home medications and adjust as necessary. (5) DVT prophylaxis Status: Acute Assessment & Plan: Enoxaparin AMANDA GONG MD Aug 26, 2021 16:50
[2021-08-26] MEDS: FUROSEMIDE 40 MG/4 ML INJ (LASIX) IVP SCH (17:45)
[2021-08-27 03:26] VITALS: BP 184/82
[2021-08-27 06:19] LABS: BASOPHILS % (AUTO) 0 % (0-10); EOSINOPHILS % (AUTO) 0 % (0-10); HEMATOCRIT 35 % (35-52); HEMOGLOBIN 11.6 g/dL (11.5-16.0); LYMPHOCYTES # (AUTO) 2.4 10^3/uL (1.0-4.0); LYMPHOCYTES % (AUTO) 24 % (12-44); MEAN CORPUSCULAR HEMOGLOBIN 28 pg (25-34); MEAN CORPUSCULAR HGB CONC 33 g/dL (32-36); MEAN CORPUSCULAR VOLUME 86 fL (80-99); MEAN PLATELET VOLUME 10.4 fL (9.0-12.2); MONOCYTES # (AUTO) 0.5 10^3/uL (0.0-1.0); MONOCYTES % (AUTO) 5 % (0-12); NEUTROPHILS # (AUTO) 7.1 10^3/uL (1.8-7.8); NEUTROPHILS % (AUTO) 70 % (42-75); PLATELET COUNT 257 10^3/uL (130-400); WHITE BLOOD COUNT 10.1 10^3/uL (4.3-11.0)
[2021-08-27 06:21] VITALS: BP 159/77
[2021-08-27] MEDS: FUROSEMIDE 40 MG/4 ML INJ (LASIX) IVP SCH (06:22)
[2021-08-27 06:24] LABS: ALBUMIN 3.6 GM/DL (3.2-4.5); POTASSIUM 3.2 MMOL/L (3.6-5.0)
[2021-08-27 06:26] LABS: CALCIUM 8.6 MG/DL (8.5-10.1)
[2021-08-27 06:27] LABS: TOTAL PROTEIN 6.9 GM/DL (6.4-8.2)
[2021-08-27 06:29] LABS: BILIRUBIN,TOTAL 0.4 MG/DL (0.1-1.0)
[2021-08-27 06:30] LABS: CREATININE SERUM 0.88 MG/DL (0.60-1.30)
[2021-08-27 08:00] VITALS: BP 136/85
--- NOTE | 2021-08-27 08:10 | Cardiology Progress Note ---
Subjective Date Seen by Provider: Aug 27, 2021 Time Seen by Provider: 08:04 Subjective/Events-last exam Patient was seen at bedside, sitting comfortably, no new complaint. Review of Systems General: No Chills, No Night Sweats, No Fatigue, No Malaise, No Appetite, No Other HEENT: No Head Aches, No Visual Changes, No Eye Pain, No Ear Pain, No Dysphasia, No Sinus Congestion, No Post Nasal Drip, No Sore Throat, No Other Pulmonary: No Dyspnea, No Cough, No Pleuritic Chest Pain, No Other Cardiovascular: No: Chest Pain, Palpitations, Orthopnea, Paroxysmal Noc. Dyspnea, Edema, Lt Headedness, Other Objective-Cardiology Exam Last Set of Vital Signs Vital Signs 08/25/21 08/27/21 08/27/21 08/27/21 20:56 03:26 06:21 07:46 Temp 36.4 Pulse 64 Resp 18 B/P (MAP) 159/77 (104) Pulse Ox 95 O2 Delivery Room Air O2 Flow Rate 96.00 FiO2 21 I&O Intake and Output 08/27/21 00:00 Intake Total 1370 ml Output Total 2800 ml Balance -1430 ml Intake Oral 1270 ml IV Total 100 ml Output Urine Total 2800 ml # Voids 4 # Bowel Movements 1 General: Alert, Oriented X3, Cooperative HEENT: Atraumatic, PERRLA Neck: Supple, No JVD, No Thyromegaly Lungs: Clear to Auscultation, Normal Air Movement Heart: Regular Rate, Normal S1, Normal S2, No Murmurs Abdomen: Normal Bowel Sounds, Soft, No Tenderness, No Hepatosplenomegaly, No Masses Extremities: No Clubbing, No Cyanosis, No Edema, Normal Pulses, No Tenderness/S welling Skin: No Rashes, No Breakdown, No Significant Lesion Neuro: Normal Gait, Normal Speech, Strength at 5/5 X4 Ext, Normal Tone, Sensation Intact Psych/Mental Status: Mental Status NL, Mood NL Results Lab Laboratory Tests 08/27/21 05:50 A/P-Cardiology Admission Diagnosis Shortness of breath Hypertension Obesity Peripheral edema Assessment/Plan Shortness of breath, mild elevation in BNP, responded to diuretics, awaiting 2D echo evaluation. Hypertension, poorly controlled, maintained on Toprol-XL 100 mg daily, losartan 100 mg daily, hydrochlorothiazide, clonidine 0.1 mg twice daily was added yesterday, still having bouts of elevated blood pressure. Questionable history of coronary artery disease, patient reporting that she had a heart attack at age 37, did not require any stenting, was not on any treatment and no further episodes were reported. No cardiac work-up was done recently. I am planning to do a stress test as an outpatient Hypokalemia secondary to diuretics. Replace potassium Obesity, BMI 50, discussed weight loss History of substance abuse, has been abstinent for over 20 years Pedal edema, reporting recurrent right lower extremity edema, better at this time Anxiety, managed by primary care physician NAVJOT CABRERA MD Aug 27, 2021 08:10
[2021-08-27] MEDS ORDERED: KCL 20 MEQ TAB (K-DUR) PO SCH (08:15)
[2021-08-27] MEDS: cloNIDine 0.1 MG (CATAPRES) TAB PO SCH (08:40)
[2021-08-27] MEDS: LOSARTAN 100 MG (COZAAR) TABLET PO SCH (08:40)
[2021-08-27] MEDS: ENOXAPARIN 100 MG/1 ML (LOVENOX) SYR SC SCH (08:41)
[2021-08-27] MEDS: SENNOSIDES 8.6 MG (SENOKOT) TAB PO SCH (08:50)
[2021-08-27] MEDS: DOCUSATE SODIUM 100 MG (COLACE) CAP PO SCH (08:50)
[2021-08-27] MEDS ORDERED: meTOproloL SUCCINATE 50 MG (TOPROL XL) TAB PO SCH (09:00)
[2021-08-27] MEDS ORDERED: NS IV 500 ML 500 ML IV ONE (09:00)
[2021-08-27] MEDS: POTASSIUM CL 10MEQ/50ML IVPB 50 ML IV SCH ×2 (09:06→09:32)
[2021-08-27] MEDS ORDERED: KCL 20 MEQ TAB (K-DUR) PO NR (09:30)
[2021-08-27 12:00] VITALS: BP 114/59
[2021-08-27] MEDS ORDERED: HYDR12.56 PO (13:40)
[2021-08-27] MEDS ORDERED: CLN.1T PO (13:40)
[2021-08-27] MEDS ORDERED: FURO20TA4 PO (13:40)
[2021-08-27] MEDS ORDERED: POTA-169 PO (13:40)
--- NOTE | 2021-08-27 13:43 | Discharge Summary ---
Discharge Summary Hospital Course Problems/Diagnosis: (1) Shortness of breath Status: Acute Assessment & Plan: Not requiring supplemental oxygen, suspect due to pulmonary edema, no clear infiltrate, and no leukocytosis, will d/c cefepime; COVID negative, d/c dexamethasone. Cardiology recommended outpatient stress test. (2) Elevated brain natriuretic peptide (BNP) level Status: Acute Assessment & Plan: Echo normal, Cardiology recommended continuing low dose lasix outpatient. (3) Elevated d-dimer Status: Acute Assessment & Plan: CTA chest neg for PE, ultrasound bilateral lower extremities neg for DVT (4) Hypertension Status: Chronic Assessment & Plan: Severe, resumed home medications (losartan 100 mg, HCTZ 12.5 mg and metoprolol 100 mg) and added clonidine 0.1 mg BID. Hospital Course Date of Admission: Aug 25, 2021 at 18:38 Admission Diagnosis : Family Physician/Provider: Zen Calzada Date of Discharge: 08/27/21 Discharge Diagnosis: See problem list Hospital Course: See problem list Labs and Pending Lab Test: Laboratory Tests 08/27/21 05:50: White Blood Count 10.1, Red Blood Count 4.09, Hemoglobin 11.6, Hematocrit 35, Mean Corpuscular Volume 86, Mean Corpuscular Hemoglobin 28, Mean Corpuscular Hemoglobin Concent 33, Red Cell Distribution Width 12.9, Platelet Count 257, Mean Platelet Volume 10.4, Immature Granulocyte % (Auto) 1, Neutrophils (%) (Auto) 70, Lymphocytes (%) (Auto) 24, Monocytes (%) (Auto) 5, Eosinophils (%) (Auto) 0, Basophils (%) (Auto) 0, Neutrophils # (Auto) 7.1, Lymphocytes # (Auto) 2.4, Monocytes # (Auto) 0.5, Eosinophils # (Auto) 0.0, Basophils # (Auto) 0.0, Immature Granulocyte # (Auto) 0.1, Sodium Level 139, Potassium Level 3.2L, Chloride Level 102, Carbon Dioxide Level 23, Anion Gap 14, Blood Urea Nitrogen 20H, Creatinine 0.88, Estimat Glomerular Filtration Rate 72, BUN/Creatinine Ratio 23, Glucose Level 118H, Calcium Level 8.6, Corrected Calcium 8.9, Total Bilirubin 0.4, Aspartate Amino Transf (AST/SGOT) 20, Alanine Aminotransferase (ALT/SGPT) 21, Alkaline Phosphatase 57, Total Protein 6.9, Albumin 3.6 Home Meds Active Klor-Con M20 (Potassium Chloride) 20 Meq Tab.er.prt 10 Meq PO DAILY@0700 Furosemide 20 Mg Tablet 20 Mg PO DAILY Clonidine HCl 0.1 Mg Tablet 0.1 Mg PO BID Hydrochlorothiazide 12.5 Mg Tablet 12.5 Mg PO DAILY Reported Glucosamine Chondroitin Tab (Gluc Castro/Chondro Castro A/Vit C/Mn) 1 Each Tablet 2 Each PO DAILY Metoprolol Succinate 100 Mg Tab.er.24h 100 Mg PO DAILY Losartan Potassium 100 Mg Tablet 100 Mg PO DAILY Assessment/Pt DC Instructions Follow up with primary physician within a week of discharge, follow up with Cardiology as directed. Discharge Diet: Cardiac Diet Activity as Tolerated: Yes Discharge Physical Examination Allergies: Coded Allergies: Latex, Natural Rubber (Verified Allergy, Unknown, 08/25/21) General Appearance: No Apparent Distress, WD/WN Respiratory: Lungs Clear, Normal Breath Sounds Cardiovascular: Regular Rate, Rhythm, No Murmur Skin: Normal Color, Warm/Dry Neurologic/Psychiatric: Alert, Normal Mood/Affect AMANDA PIZANO MD Aug 27, 2021 13:43
[2021-08-27 15:10] VITALS: BP 114/59
[2021-08-27] MEDS ORDERED: ENOXAPARIN 40 MG/0.4 ML (LOVENOX) SYR SC SCH (21:00)
--- NOTE | 2021-08-29 10:29 | Physician Query Clarification ---
PQ-Further Specificity Admission/Discharge Admission Date: Aug 25, 2021 at 18:38 Discharge Date: Aug 27, 2021 at 15:12 Dr. Gong, The medical record reflects the following clinical scenario: History/Risk Factors: HTN, obesity Clinical Findings: BNP 368.3, EF 55-60%, CXR 08/25 IMPRESSION: Enlarged cardiac silhouette with central pulmonary vascular prominence suggesting pulmonary edema. Treatment: 40 mg IVP Lasix Question: Can you further specify pulmonary edema per the clinical indicators above? Please document a response in the Progress Notes or Discharge Summary. 1. pulmonary edema d/t CHF (if yes, please specify acuity and type of CHF) 2. acute pulmonary edema only (no CHF) 3. Other, with explanation of the clinical findings. 4. Clinically undetermined, no explanation for the clinical findings. PHYSICIAN RESPONSE Can you specify per above: 2 Please remember a lack of response to the above will prompt a phone page by CDI/Coding staff. In responding to this query, please exercise your independent professional judgment. The purpose of this communication is to more accurately reflect the complexity of your patients condition. The fact that a question is asked does not imply that any particular answer is desired or expected. Thank you for your timely response to this clarification. Requestors name: Landon THIS PHYSICIAN QUERY FORM IS A PERMANENT PART OF THE MEDICAL RECORD LANDON TONY Aug 29, 2021 10:29 AMANDA GONG MD Aug 29, 2021 20:37
== END 2021-08-27 15:12 | disposition home or self-care (01) | DRG 189 ==
LOC: EDUNIT# 14:55 → ER 14:58 → CSD 18:38 → 4TH 08-26 08:36
PROVIDERS: ADMIT Internal Medicine; ATTEND Family Medicine
DX: J81.0 Acute pulmonary edema (principal); Z68.43 Body mass index [BMI] 50.0-59.9, adult; R09.02 Hypoxemia; E66.9 Obesity, unspecified; I10 Essential (primary) hypertension; E87.6 Hypokalemia; E78.5 Hyperlipidemia, unspecified; F41.9 Anxiety disorder, unspecified; Z20.822 Contact with and (suspected) exposure to COVID-19; T50.2X5A Adverse effect of carbonic-anhydrase inhibitors, benzothiadiazides and other diuretics, initial encounter; Z79.82 Long term (current) use of aspirin; Z91.040 Latex allergy status
CPT/HCPCS: 36415; 71045; 71275; 80053; 81000; 82805; 83880; 84145; 84484; 85025; 85379; 87635; 87636; 87804; 93005; 93306; 93970; 94640; 94760

== ENCOUNTER → 2021-10-07 | Outpatient (CLI) | payer MEDICARE, MEDICAID ==
[~2021-10-07] MED LIST changes: +CLN.1T PO; +FURO20TA4 PO; +GLUC1TAB20 PO; +HYDR12.56 PO; +HYDR25TA4 PO; +LOSA100T57 PO; +LOSA1TAB26 PO; +METO50TA7 PO; +MTP100TCR PO; +POTA-169 PO; +REGADENOSON 0.4 MG/5 ML SYR (LEXISCAN) IV ONE
[2021-10-07] MEDS: CATHETER FLUSH 10 ML SYR IVP PRN ×2 (08:15→09:45)
[2021-10-07 09:35] VITALS: BP 147/84
--- NOTE | 2021-10-07 11:31 | Cardiology Stress Test Report ---
Stress Test Report Date of Procedure/Referring: Date of Procedure: Oct 07, 2021 PCP Navjot Gallego MD Admitting Physician Center/[facility] Indications: HTN Baseline Heart Rate: 51 Baseline Blood Pressure: Blood Pressure Systolic: 147 Blood Pressure Diastolic: 84 Baseline Vitals Vital Signs Date Time Temp Pulse Resp B/P (MAP) Pulse Ox O2 Delivery O2 Flow Rate FiO2 10/07/21 09:35 52 16 147/84 (105) 95 Room Air Baseline EKG: Baseline EKG: NSR Summary After explaining the procedure to the patient, she signed a consent and then brought to the stress nuclear laboratory. Patient received 0.4 mg Lexiscan for stress test, ECG, heart rate and blood pressure were monitored continuously. Resting and stress dose of radio tracer were injected, imaging was acquired and reviewed in short axis, horizontal long axis and vertical long axis views. TID: 0.95 SSS: 5 SDS: 5 EF: 69 1. Patient was unable to exercise, test was converted to Lexiscan Myoview and patient tolerated Lexiscan well. 2. Breast attenuation with reversible ischemia involving the mid to apical anterior wall 3. Normal left ventricular size, EF 69% NAVJOT GALLEGO MD Oct 07, 2021 11:31
== END ==
LOC: CARD 08:15
PROVIDERS: ATTEND Internal Medicine Cardiovascular Disease
DX: I10 Essential (primary) hypertension (principal); I25.10 Atherosclerotic heart disease of native coronary artery without angina pectoris
CPT/HCPCS: 78452; 93017; A9502

== ENCOUNTER 2022-03-19 07:59 | Day surgery (SDC) | payer MEDICARE, MEDICAID ==
[2022-03-19] VITALS (9 sets, daily range): BP systolic 113–144; BP diastolic 53–88
[~2022-03-19] VITALS: Ht 162.6 cm; Wt 132.0 kg
[~2022-03-19 07:59] MED LIST changes: -GLUC1TAB20 PO; +GLUC1TAB21 PO; -REGADENOSON 0.4 MG/5 ML SYR (LEXISCAN) IV ONE
[2022-03-19] MEDS ORDERED: LIDOCAINE 1% INJ 20 ML VIAL ONE (08:07)
[2022-03-19] MEDS ORDERED: NS IV 1000 ML 1,000 ML ONE (08:07)
[2022-03-19] MEDS ORDERED: HEParin (CATH LAB) 2,000 ML IV ONE (08:07)
[2022-03-19] MEDS ORDERED: NS IV 1000 ML 1,000 ML IV SCH ×2 (08:15→09:45)
[2022-03-19 08:29] LABS: HEMATOCRIT 45 % (35-52); HEMOGLOBIN 14.9 g/dL (11.5-16.0); MEAN CORPUSCULAR HEMOGLOBIN 29 pg (25-34); MEAN CORPUSCULAR HGB CONC 33 g/dL (32-36); MEAN CORPUSCULAR VOLUME 86 fL (80-99); MEAN PLATELET VOLUME 10.4 fL (9.0-12.2); PLATELET COUNT 243 10^3/uL (130-400); WHITE BLOOD COUNT 9.9 10^3/uL (4.3-11.0)
--- NOTE | 2022-03-19 08:31 | Diagnostic Imaging Report ---
Indication: Pre-heart catheterization. Time of Exam: 8:28 AM Correlation is made with prior chest 08/25/2021. Findings: The heart size is normal. The pulmonary vascularity is unremarkable. The lungs are clear. No infiltrate, effusion or pneumothorax is detected. Impression: No acute cardiopulmonary process is detected. Dictated by: Dictated on workstation # [id number]
[2022-03-19 08:43] LABS: CLARITY,URINE CLEAR; COLOR,URINE YELLOW
[2022-03-19 08:44] LABS: BILIRUBIN,URINE NEGATIVE (NEGATIVE); GLUCOSE, URINE (UA) NEGATIVE (NEGATIVE); KETONES,URINE NEGATIVE (NEGATIVE); LEUKOCYTE ESTERASE ,URINE 1+ (NEGATIVE); NITRITE,URINE POSITIVE (NEGATIVE); PROTEIN,URINE NEGATIVE (NEGATIVE)
[2022-03-19 08:45] LABS: BACTERIA,URINE NEGATIVE /HPF; RBC,URINE RARE /HPF
--- NOTE | 2022-03-19 08:45 | Cardiac Procedure Note-CS/ASA ---
Pre-Procedure Note Pre-Op Procedure Note Date of Available H&P: Mar 10, 2022 Date H&P Reviewed: Mar 19, 2022 Time H&P Reviewed: 08:45 History & Physical: H&P Reviewed, Patient Examed, No changes noted Pre-Operative Diagnosis: CAD Conscious Sedation Pre-Proced Time 08:45 ASA Score 3 For ASA 3 and 4: Consider anesthesia and medical clearance. Also, for patients with a history of failed moderate sedation consider anesthesia. Airway Lungs Heart ASA score ASA 1: a normal healthy patient ASA 2: a patient with a mild systemic disease (mid diabetes, controlled hypertension, obesity x ASA 3: a patient with a severe systemic disease that limits activity (angina, COPD, prior Myocardial infarction) ASA 4: a patient with an incapacitating disease that is a constant threat to life (CHF, renal failure) ASA 5: a moribund patient not expected to survive 24 hrs. (ruptured aneurysm) ASA 6: a declared brain- patient whose organs are being harvested. For emergent operations, add the letter E after the classification Mallampati Classification Grade 3 Sedation Plan Analgesia, Amnesia, Plan communicated to team members, Discussed options with patient/fam, Discussed risks with patient/fam The patient is an appropriate candidate to undergo the planned procedure, sedation, and anesthesia. The patient immediately re-assessed prior to indication. NAVJOT CABRERA MD Mar 19, 2022 08:45
[2022-03-19 08:52] LABS: ALBUMIN 4.5 GM/DL (3.2-4.5); BILIRUBIN,TOTAL 0.6 MG/DL (0.1-1.0); CALCIUM 9.6 MG/DL (8.5-10.1); CREATININE SERUM 1.09 MG/DL (0.60-1.30); POTASSIUM 3.8 MMOL/L (3.6-5.0); TOTAL PROTEIN 8.1 GM/DL (6.4-8.2)
[2022-03-19 08:53] LABS: PROTHROMBIN TIME PATIENT 13.5 SEC (12.2-14.7)
[2022-03-19] MEDS ORDERED: ASPI-1238 PO (08:59)
[2022-03-19] MEDS ORDERED: POTA-51 PO (08:59)
[2022-03-19] MEDS ORDERED: HEParin 1000 UNIT/ML (10ML VIAL) FOR BOLUS ONE (08:59)
[2022-03-19] MEDS ORDERED: FURO20TA4 PO (08:59)
[2022-03-19] MEDS ORDERED: CLN.1T PO (08:59)
[2022-03-19] MEDS ORDERED: fentaNYL INJ 100 MCG/2 ML AMP ONE (08:59)
[2022-03-19] MEDS ORDERED: NITRO DRIP 25000 MCG/D5W 250 ML IV ONE (08:59)
[2022-03-19] MEDS ORDERED: MIDAZOLAM 5 MG/5 ML (VERSED) VIAL ONE (08:59)
[2022-03-19] MEDS ORDERED: HYDR12.56 PO (08:59)
[2022-03-19] MEDS ORDERED: VERAPAMIL 5 MG/2 ML (CALAN) VIAL IV ONE (08:59)
[2022-03-19] MEDS ORDERED: ATROPINE INJECTION 1 MG/10 ML SYR (ABBOTT) ONE (09:28)
--- NOTE | 2022-03-19 09:37 | Discharge Inst-Post CATH ---
Discharge Inst-CATH/EP Problems Reviewed?: Yes Post Cardiac Cath/EP D/C Inst Follow Up/Plan Appointment with Dr. Gallego's office in 2 to 4 weeks <b>CARDIAC CATH/EP PROCEDURE DISCHARGE INSTRUCTIONS</b> ACTIVITY * Go Home directly and rest. * Limit activity of the leg (or wrist if it was used) for 7 days including aer obics, swimming, jogging, bicycling, etc. * Restrict stair-climbing for 7 days if possible, if not, climb up with your non-cath leg, then bring together on the same step. * Avoid lifting, pushing, pulling or excessive movement of the affected extremi ty for 7 days. * Customary sexual activity may be resumed after 2 days-use caution not to use a position that strains or causes pain to the affected extremity. * No driving for 24 hours. * NO SMOKING. * Avoid straining for bowel movements for 7 days. * Gentle walking on level ground is allowed. * Returning to work will depend on the type of procedure and the results. Your doctor will discuss this with you. CALL YOUR DOCTOR FOR ANY OF THE FOLLOWING: *If bleeding from the puncture site occurs- Apply gentle pressure to site with clean cloth and call your doctor or EMS. * If a knot or lump forms under the skin, increases in size, or causes pain. * If bruising appears to be worsening or moving further down your leg instead of disappearing. * Temperature above 101 F. CARE OF YOUR GROIN INCISION; * Bruising or purple discoloration of the skin near the puncture site is common. * You may shower only, no bathtub bathing for 5 days. Be careful to avoid slipping as your leg may feel stiff. * If a closure device was used on your femoral artery, please see the attached guide regarding care of the device and your leg. * Leave dressing on FOR 24 hours. CARE OF YOUR WRIST INCISION; * Bruising or purple discoloration of the skin near the puncture site is common. * You may shower. * DO NOT submerge wrist. * Leave dressing on FOR 24 hours. NAVJOT GALLEGO MD Mar 19, 2022 09:37
--- NOTE | 2022-03-19 09:40 | Cardiac Cath Report ---
Cardiac Cath Report Physician (s)/Equities Analyst (s) Physician NAVJOT CABRERA MD Pre-Procedure Diagnosis Pre-Procedure Diagnosis: CAD Post-Procedure Note Procedure Start Date: Mar 19, 2022 Name of Procedure: Left heart catheterization Findings/Procedure Note PROCEDURE NOTE: 66-year-old lady with history of hypertension, hyperlipidemia, had an abnormal stress test, scheduled for cardiac catheterization possible PTCA. After explaining the procedure to the patient, all pros and cons were explained, all questions were answered. The patient signed the consent and then she was placed on the cardiac catheterization laboratory. Groin was prepped SL fashion local anesthesia was used. Sheath placed in the right radial artery, [place] catheter was used and prolapsed to the left ventricular cavity, pressure was measured, pullback LV to aorta was done, engaged the right and left coronary system, angiogram was done. At the end of the procedure the sheath was removed. Vascular band was used FINDINGS: Hemodynamics LV 94/9, end-diastolic pressure of 9 Aorta 78/46 mean of 58 ANATOMY: Left Main is free of obstructive disease Left Anterior Descending has mild disease nonobstructive disease Left Circumflex has mild disease nonobstructive disease Right Coronary Artery is dominant artery with mild disease nonobstructive disease LV Gram was not done, pressure was measured CONCLUSION: 1. Mild coronary artery disease nonobstructive disease 2. Normal left ventricular end-diastolic pressure DISCUSSION AND RECOMMENDATION: Medical therapy is recommended no intervention is warranted Anesthesia Type: Conscious Sedation Estimated blood loss (mL): 10 ml Contrast Amount: 16 ml Total Radiation Dose: 377 mGy Post-Procedure Diagnosis Post-operative diagnosis: Coronary artery disease Hypertension Hyperlipidemia Obesity NAVJOT CABRERA MD Mar 19, 2022 09:40
== END 2022-03-19 12:15 | disposition home or self-care (01) ==
LOC: CATH 07:59 → SDC 09:58 → CATH 12:15
PROVIDERS: ATTEND Internal Medicine Cardiovascular Disease
DX: I25.10 Atherosclerotic heart disease of native coronary artery without angina pectoris (principal); I12.9 Hypertensive chronic kidney disease with stage 1 through stage 4 chronic kidney disease, or unspecified chronic kidney disease; N18.9 Chronic kidney disease, unspecified; E78.5 Hyperlipidemia, unspecified; E66.9 Obesity, unspecified; Z91.040 Latex allergy status; Z91.048 Other nonmedicinal substance allergy status; Z87.891 Personal history of nicotine dependence; Z68.42 Body mass index [BMI] 45.0-49.9, adult; I25.2 Old myocardial infarction
CPT/HCPCS: 36430; 71045; 80053; 80061; 81000; 85027; 85610; 85730; 87081; 87088; 93458; C1894; 36415; 87077; 93005

== ENCOUNTER → 2023-06-30 | Outpatient (CLI) | payer MEDICARE, MEDICAID ==
[~2023-06-30] MED LIST changes: +ASPI-1238 PO; -LOSA100T57 PO; +LOSA100T58 PO; +POTA-330 PO
== END ==
LOC: CARD 14:25
PROVIDERS: ATTEND Internal Medicine Cardiovascular Disease
DX: I10 Essential (primary) hypertension (principal); I25.10 Atherosclerotic heart disease of native coronary artery without angina pectoris
CPT/HCPCS: 93306